=== PATIENT | male | born 1990 | race Caucasian/White ===

== ENCOUNTER 2018-09-24 10:42 | Emergency (ER) | payer SELFPAY ==
--- NOTE | 2018-09-24 11:46 | ED ---
Throat Pain/Nasal Congestion - HPI Summary HPI Summary: Patient presents with bilateral upper tooth pain. Right upper tooth and gum area started hurting about 3-4 days ago. He's been taking naproxen without relief. He has been using salt water mouth rinses which help swelling and irritation. Feels pain is moving up into his taoism region. He is still eating and drinking without difficulty. Denies fever, chills, nausea, vomiting , neck pain or stiffness, high pain, ear pain or nasal congestion. He does not believe he has a discharge coming from this area. Also reports a less severe and intermittent pain in the left upper dental region. Feels a tooth may be loose here and is tender to touch. Denies swelling although reports there may be an odd taste from drainage on this side. Reports history of poor dentition in general and has needed work on his teeth in the past. He has not been receiving her routine dental care since. - History of Current Complaint Chief Complaint: EDDentalPain Time Seen by Provider: 09/24/18 11:14 Hx Obtained From: Patient - Allergies/Home Medications Allergies/Adverse Reactions: Allergies Allergy/AdvReac Type Severity Reaction Status Date / Time No Known Allergies Allergy Verified 09/24/18 10:49 PMH/Surg Hx/FS Hx/Imm Hx Previously Healthy: Yes Endocrine/Hematology History: Denies: Hx Anticoagulant Therapy, Autoimmune Disease EENT History: Reports: Other - recurrent dental issues Infectious Disease History: No Infectious Disease History: Denies: Traveled Outside the [place] in Last 30 Days - Family History Known Family History: Positive: Hypertension, Diabetes - Social History Occupation: Employed Full-time Lives: With Family Alcohol Use: Occasionally Hx Substance Use: No Substance Use Type: Reports: None Hx Tobacco Use: No Smoking Status (MU): Never Smoked Tobacco Review of Systems Constitutional: Negative Negative: Fever, Chills, Fatigue Eyes: Negative Positive: Dental Pain. Negative: Sore Throat, Ear Ache, Nasal Discharge Cardiovascular: Negative Respiratory: Negative Gastrointestinal: Negative Positive: no symptoms reported Musculoskeletal: Negative Skin: Negative Neurological: Negative Psychological: Normal All Other Systems Reviewed And Are Negative: Yes Physical Exam Triage Information Reviewed: Yes Vital Signs On Initial Exam: Initial Vitals Temp Pulse Resp BP Pulse Ox 97.8 F 78 18 141/89 100 09/24/18 10:47 09/24/18 10:47 09/24/18 10:47 09/24/18 10:47 09/24/18 10:47 Vital Signs Reviewed: Yes Appearance: Positive: Well-Appearing, No Pain Distress, Well-Nourished Skin: Positive: Warm, Skin Color Reflects Adequate Perfusion, Dry - no erythema , no edema, no lesions over face/neck Head/Face: Positive: Normal Head/Face Inspection Eyes: Positive: Normal, EOMI - no pain w/ movement, ARLEEN, Conjunctiva Clear. Negative: Conjunctiva Inflammed, Discharge ENT: Positive: Normal ENT inspection, Hearing grossly normal, Pharynx normal, TMs normal, Uvula midline. Negative: Nasal congestion, Nasal drainage, Tonsillar swelling, Tonsillar exudate, Trismus, Muffled voice, Hoarse voice Dental: Positive: Gross Decay/Caries @ - diffuse dental carries and decay throughout mouth w/ mild gingivitis throughout - no melissa areas of edema/abscess /pustules or drainge Neck: Positive: Supple, Nontender, No Lymphadenopathy Respiratory/Lung Sounds: Positive: Breath Sounds Present. Negative: Stridor, Tracheal Deviation Cardiovascular: Positive: Normal Musculoskeletal: Positive: Normal, Strength/ROM Intact Neurological: Positive: Normal, Sensory/Motor Intact, Alert, Oriented to Person Place, Time, CN Intact II-III Psychiatric: Positive: Normal Diagnostics - Vital Signs Vital Signs Temp Pulse Resp BP Pulse Ox 09/24/18 10:47 97.8 F 78 18 141/89 100 - Laboratory Lab Statement: Any lab studies that have been ordered have been reviewed, and results considered in the medical decision making process. EENT Course/Dx - Diagnoses Provider Diagnoses: Gingivitis, Pain due to dental caries Discharge - Sign-Out/Discharge Documenting (check all that apply): Patient Departure - Discharge Plan Condition: Stable Disposition: HOME Prescriptions: Amoxicillin PO (*) [Amoxicillin 500 MG CAP*] 500 mg PO TID #30 cap Chlorhexidine MOUTHWASH 0.12%* [Peridex Mouth Wash 0.12%*] 15 ml MT BID #1 btl Patient Education Materials: Gingivitis (ED), Toothache (ED) Additional Instructions: Take medications as directed See education sheets for additional support Follow-up with dentist later this week - call to schedule an appointment *If you develop severe headache, fever, neck stiffness, difficulty breathing or swallowing, return to the ED - Billing Disposition and Condition Condition: STABLE Disposition: Home
[2018-09-24 11:53] VITALS: BP 142/99
== END 2018-09-24 11:52 | disposition home or self-care (01) ==
LOC: ED 10:42
DX: K05.10 Chronic gingivitis, plaque induced (principal); K02.9 Dental caries, unspecified
CPT/HCPCS: 99282

== ENCOUNTER 2019-01-16 17:48 | Emergency (ER) | payer BC ==
--- NOTE | 2019-01-16 18:34 | ED ---
Throat Pain/Nasal Congestion - HPI Summary HPI Summary: Patient is a 28-year-old male who presents emergency department for redness and drainage to his right eye. Patient states he woke up this morning and noticed drainage and redness to his right eye. Patient notes mild discomfort when rubbing eye and blinking. He does not wear contact lenses. Denies concern for foreign body. Patient states he believes he was around somebody who had pinkeye last week. Patient otherwise denies fever, chills, sore throat, ear pain, cough. No significant past medical history. Symptoms are mild in severity. No current modifying factors. - History of Current Complaint Chief Complaint: EDEyeProblem Time Seen by Provider: 01/16/19 18:00 Hx Obtained From: Patient - Allergies/Home Medications Allergies/Adverse Reactions: Allergies Allergy/AdvReac Type Severity Reaction Status Date / Time No Known Allergies Allergy Verified 01/16/19 17:53 PMH/Surg Hx/FS Hx/Imm Hx Previously Healthy: Yes Endocrine/Hematology History: Denies: Hx Anticoagulant Therapy Infectious Disease History: No Infectious Disease History: Denies: Traveled Outside the [place] in Last 30 Days - Family History Known Family History: Positive: Hypertension, Diabetes - Social History Occupation: Employed Full-time Lives: With Family Alcohol Use: Daily Hx Substance Use: No Substance Use Type: Reports: None Hx Tobacco Use: No Smoking Status (MU): Never Smoked Tobacco Review of Systems Constitutional: Negative Negative: Fever, Chills Positive: Drainage, Erythema ENT: Negative Negative: Sore Throat, Ear Ache, Nasal Discharge Respiratory: Negative Negative: Shortness Of Breath, Cough Skin: Negative Neurological: Negative Negative: Headache All Other Systems Reviewed And Are Negative: Yes Physical Exam Triage Information Reviewed: Yes Vital Signs On Initial Exam: Initial Vitals Temp Pulse Resp BP Pulse Ox 98.9 F 79 18 139/82 99 01/16/19 17:50 01/16/19 17:50 01/16/19 17:50 01/16/19 17:50 01/16/19 17:50 Vital Signs Reviewed: Yes Appearance: Positive: Well-Appearing - Pt. sitting in bed in NAD. Skin: Positive: Warm, Dry Head/Face: Positive: Normal Head/Face Inspection Eyes: Positive: EOMI, ARLEEN, Other: - Left eye unremarkable. moderate injection to right conjunctiva. Small amount of dried yellowish drainage to the inner canthus. EOMI without pain. No periorbital erythema or edema. ENT: Positive: Pharynx normal, TMs normal Neck: Positive: Supple Neurological: Positive: Normal, CN Intact II-III Psychiatric: Positive: Affect/Mood Appropriate Diagnostics - Vital Signs Vital Signs Temp Pulse Resp BP Pulse Ox 01/16/19 17:50 98.9 F 79 18 139/82 99 - Laboratory Lab Statement: Any lab studies that have been ordered have been reviewed, and results considered in the medical decision making process. EENT Course/Dx - Course Course Of Treatment: Exam consistent with likely bacterial conjunctivitis. We' ll treat with Polytrim eyedrops. Advised close follow-up with PCP if symptoms persist. Advised to avoid touching and rubbing eye and practice good hand hygiene. To apply warm compress to eye in morning. Return to the ER if symptoms change or worsen. Patient understands and agrees with plan. - Differential Diagnoses Differential Diagnoses: Allergic Rhinitis, Conjunctivitis - Diagnoses Provider Diagnoses: Conjunctivitis Discharge - Sign-Out/Discharge Documenting (check all that apply): Patient Departure Patient Received Moderate/Deep Sedation with Procedure: No - Discharge Plan Condition: Good Disposition: HOME Prescriptions: Polymyx/Trimethoprim OPTH* [Polytrim OPHTH*] 1 drop RIGHT EYE Q3H 10 Days #1 btl Patient Education Materials: Conjunctivitis (ED) Referrals: Chente Villalobos MD [Primary Care Provider] - Additional Instructions: Follow up with PCP if symptoms persist Use antibiotic drops as directed Apply warm compresses to eye Wash hands frequently and avoid touching/rubbing eye Return to ER if symptoms change or worsen - Billing Disposition and Condition Condition: GOOD Disposition: Home
[2019-01-16 18:36] VITALS: BP 128/98
== END 2019-01-16 18:35 | disposition home or self-care (01) ==
LOC: ED 17:48
DX: H10.9 Unspecified conjunctivitis (principal)
CPT/HCPCS: 99281

== ENCOUNTER 2020-01-13 19:43 | Emergency (ER) | payer BC ==
--- NOTE | 2020-01-13 20:23 | ED ---
Throat Pain/Nasal Congestion - HPI Summary HPI Summary: 29 [facility] upper L dental pain rated 2/10 worse with chewing food x2 days. Hx dental abscess a few years ago. He has taken Tylenol for the pain. He denies fever, chills, difficulty swallowing. He is in the process of establishing dentist. Surgical hx: appendectomy. No known drug allergies. He reports drinking 6 pack almost every day. No recreational drug or tobacco use. - History of Current Complaint Chief Complaint: EDDentalPain Time Seen by Provider: 01/13/20 20:19 Hx Obtained From: Patient Onset/Duration: Lasting Days - 2, Still Present Severity: Mild - 2/10 Associated Signs And Symptoms: Positive: Negative - Allergies/Home Medications Allergies/Adverse Reactions: Allergies Allergy/AdvReac Type Severity Reaction Status Date / Time No Known Allergies Allergy Verified 01/14/20 20:04 Home Medications: Home Medications Acetaminophen [Acetaminophen Extra Strength] 1,000 mg PO Q6HR PRN 01/13/20 [ History Confirmed 01/14/20] Clindamycin Cap(NF) [Clindamycin Cap 300 mg Cap(NF)] 300 mg PO TID 7 Days #21 cap 01/13/20 [Rx Confirmed 01/14/20] PMH/Surg Hx/FS Hx/Imm Hx Endocrine/Hematology History: Denies: Hx Anticoagulant Therapy - Surgical History Surgical History: Yes Surgery Procedure, Year, and Place: appendectomy Infectious Disease History: Yes Infectious Disease History: Denies: Traveled Outside the [place] in Last 30 Days - Family History Known Family History: Positive: Hypertension, Diabetes - Social History Alcohol Use: Daily Alcohol Amount: 6 pack per day Hx Substance Use: No Substance Use Type: Reports: None Hx Tobacco Use: No Smoking Status (MU): Never Smoked Tobacco Review of Systems Negative: Fever, Chills ENT: Negative - difficulty swallowing Positive: Dental Pain All Other Systems Reviewed And Are Negative: Yes Physical Exam - Summary Physical Exam Summary: Constitutional: Well-developed, Well-nourished, Alert. (-) Distressed Skin: Warm, Dry HENT: Normocephalic; Atraumatic; Tooth #9 is necrotic and missing, tenderness in tooth #11, no areas of fluctuance or induction on surface, no mandibular or sublingual swelling, small area of swelling to the L cheek Eyes: Conjunctiva normal Neck: Musculoskeletal ROM normal neck. (-) JVD, (-) Stridor, (-) Tracheal deviation Cardio: Rhythm regular, rate normal, Heart sounds normal; Intact distal pulses; Radial pulses are 2+ and symmetric. (-) Murmur Pulmonary/Chest wall: Effort normal. (-) Respiratory distress, (-) Wheezes, (-) Rales Abd: Soft, (-) tenderness, (-) Distension, (-) Guarding, (-) Rebound Musculoskeletal: (-) Edema Lymph: (-) Cervical adenopathy Neuro: Alert, Oriented x3 Psych: Mood and affect Normal Triage Information Reviewed: Yes Vital Signs On Initial Exam: Initial Vitals Temp Pulse Resp BP Pulse Ox 98.3 F 90 15 137/92 99 01/13/20 19:44 01/13/20 19:44 01/13/20 19:44 01/13/20 19:44 01/13/20 19:44 Vital Signs Reviewed: Yes Procedures - Sedation Patient Received Moderate/Deep Sedation with Procedure: No Diagnostics - Vital Signs Vital Signs Temp Pulse Resp BP Pulse Ox 01/13/20 19:44 98.3 F 90 15 137/92 99 - Laboratory Lab Statement: Any lab studies that have been ordered have been reviewed, and results considered in the medical decision making process. EENT Course/Dx - Course Course Of Treatment: Patient [place] early dental infection. Patient has no drainable abscess or deep space neck infection on exam. Patient was started on clindamycin. - Diagnoses Provider Diagnoses: Periapical abscess, Dental infection Discharge ED - Sign-Out/Discharge Documenting (check all that apply): Patient Departure - Discharge Plan Condition: Stable Disposition: HOME Prescriptions: Clindamycin Cap(NF) [Clindamycin Cap 300 mg Cap(NF)] 300 mg PO TID 7 Days #21 cap Patient Education Materials: Dental Abscess (ED) Referrals: Chente Villalobos MD [Primary Care Provider] - Additional Instructions: Take your antibiotics as prescribed. Stick to a soft diet as much as possible. Take Tylenol/Motrin for the pain. Follow up with a dentist in 1-3 days. Please return to the Emergency Department for any new or worsening symptoms (if you cannot swallow, have swelling underneath your tongue or jaw or swelling into your eye). - Billing Disposition and Condition Condition: STABLE Disposition: Home - Attestation Statements Document Initiated by Markieibe: Yes Documenting Scribe: Berna Ambrocio Provider For Whom Scribe is Documenting (Include Credential): Francesco Lassiter MD Scribe Attestation: I, Berna Ambrocio, scribed for Francesco Lassiter MD on 01/15/20 at 0705. Scribe Documentation Reviewed: Yes Provider Attestation: The documentation as recorded by the markieibBerna rivera accurately reflects the service I personally performed and the decisions made by me, Francesco Lassiter MD Status of Scribe Document: Viewed
[2020-01-13] MEDS ORDERED: Clindamycin CAP* 150 MG PO ONE (20:25)
[2020-01-13 23:28] VITALS: BP 143/95
== END 2020-01-13 21:00 | disposition home or self-care (01) ==
LOC: ED 19:43
DX: K08.89 Other specified disorders of teeth and supporting structures (principal); K04.7 Periapical abscess without sinus
CPT/HCPCS: 99281; A9270-GY

== ENCOUNTER 2020-01-14 19:58 | Emergency (ER) | payer BC ==
--- NOTE | 2020-01-14 20:07 | ED ---
Throat Pain/Nasal Congestion - HPI Summary HPI Summary: 29-year-old male with a significant past medical history of a dental abscess which was diagnosed yesterday and the patient was placed on clindamycin presents to the emergency Department today with chief complaint of increased dental pain. Patient currently endorses 8 out of 10 left upper dental pain which is similar to his complaining yesterday. Patient states he is only taken 2 doses of clindamycin prior to arrival. Patient has taken ibuprofen prior to arrival at 1830 this evening. There is no obvious abscess noted in the mouth or cellulitis or swelling of the face. Patient currently denies difficulty swallowing, breathing, fever, chest pain, abdominal pain, nausea, vomiting, diarrhea, cough, sore throat. - History of Current Complaint Chief Complaint: EDDentalPain Time Seen by Provider: 01/14/20 20:06 Hx Obtained From: Patient Onset/Duration: Gradual Onset Severity: Severe Associated Signs And Symptoms: Negative: Dysphagia, Drooling, Wheezing, Hoarseness, Sinus Discomfort, Nasal Discharge - Allergies/Home Medications Allergies/Adverse Reactions: Allergies Allergy/AdvReac Type Severity Reaction Status Date / Time No Known Allergies Allergy Verified 01/14/20 20:04 Home Medications: Home Medications Acetaminophen [Acetaminophen Extra Strength] 1,000 mg PO Q6HR PRN 01/13/20 [ History Confirmed 01/14/20] Clindamycin Cap(NF) [Clindamycin Cap 300 mg Cap(NF)] 300 mg PO TID 7 Days #21 cap 01/13/20 [Rx Confirmed 01/14/20] PMH/Surg Hx/FS Hx/Imm Hx Endocrine/Hematology History: Denies: Hx Anticoagulant Therapy - Surgical History Surgery Procedure, Year, and Place: appendectomy Infectious Disease History: No Infectious Disease History: Denies: Traveled Outside the [place] in Last 30 Days - Family History Known Family History: Positive: Hypertension, Diabetes - Social History Alcohol Use: Daily Alcohol Amount: 6 pack per day Hx Substance Use: No Substance Use Type: Reports: None Hx Tobacco Use: No Smoking Status (MU): Never Smoked Tobacco Review of Systems Constitutional: Negative Eyes: Negative Positive: Dental Pain. Negative: Epistaxis, Sore Throat, Nasal Discharge Cardiovascular: Negative Respiratory: Negative Gastrointestinal: Negative Genitourinary: Negative Musculoskeletal: Negative Skin: Negative Neurological/Mental Status: Negative Psychological: Normal All Other Systems Reviewed And Are Negative: Yes Physical Exam - Summary Physical Exam Summary: Dentition is in poor repair. There is no evidence of cellulitis of the face or swelling. There is no obvious abscess noted in the mouth. Uvula is midline. No trismus or hoarseness is noted. Triage Information Reviewed: Yes Vital Signs On Initial Exam: Initial Vitals Temp Pulse Resp BP Pulse Ox 97.4 F 88 16 144/104 100 01/14/20 20:00 01/14/20 20:00 01/14/20 20:00 01/14/20 20:00 01/14/20 20:00 Vital Signs Reviewed: Yes Appearance: Positive: Well-Appearing, No Pain Distress, Well-Nourished Skin: Positive: Warm, Skin Color Reflects Adequate Perfusion Eyes: Positive: EOMI, ARLEEN ENT: Positive: Hearing grossly normal Respiratory/Lung Sounds: Positive: Clear to Auscultation, Breath Sounds Present Cardiovascular: Positive: RRR, S1, S2 Abdomen Description: Positive: Nontender, Soft Musculoskeletal: Positive: Strength/ROM Intact Neurological: Positive: Sensory/Motor Intact, Alert, Oriented to Person Place, Time, Normal Gait, Facial Symmetry, Speech Normal Psychiatric: Positive: Normal, Affect/Mood Appropriate AVPU Assessment: Alert Procedures - Sedation Patient Received Moderate/Deep Sedation with Procedure: No Diagnostics - Vital Signs Vital Signs Temp Pulse Resp BP Pulse Ox 01/14/20 20:00 97.4 F 88 16 144/104 100 - Laboratory Lab Statement: Any lab studies that have been ordered have been reviewed, and results considered in the medical decision making process. EENT Course/Dx - Course Course Of Treatment: Patient was evaluated in the emergency department today for dental pain. Vitals noted and stable. Patient was seen at this facility yesterday and diagnosed with dental abscess and given clindamycin for which he has taken 2 doses. Infraorbital dental block was done using 4 mL of bupivacaine 0.5% and 2 ml of lidocaine without epinephrine 1%. Patient tolerated procedure well. Patient had significant pain relief after dental block. Patient discharge outpatient follow-up as there is no evidence of progression of dental abscess. Patient is continue taking his clindamycin. - Differential Diagnoses Differential Diagnoses: Dental Abscess, Dental Caries, Fractured Tooth, Gingivitis - Diagnoses Provider Diagnoses: Dental abscess Discharge ED - Sign-Out/Discharge Documenting (check all that apply): Patient Departure - Discharge Plan Condition: Stable Disposition: HOME Patient Education Materials: Dental Abscess (ED) Additional Instructions: Please continue to take ibuprofen and Tylenol as needed for pain. Please continue to take the clindamycin as directed. Please follow-up with dentistry for further evaluation and management. Please return to this emergency department immediately should you develop any new or worsening symptoms. - Billing Disposition and Condition Condition: STABLE Disposition: Home
[2020-01-14] MEDS ORDERED: Bupivacaine 0.5% PF 10 ML SDV VIAL INJ ONE (20:24)
[2020-01-14] MEDS ORDERED: Bupivacaine 0.5%* 50 ML MDV VIAL INJ ONE (20:24)
[2020-01-14 21:03] VITALS: BP 132/93
== END 2020-01-14 21:02 | disposition home or self-care (01) ==
LOC: ED 19:58
DX: K04.7 Periapical abscess without sinus (principal)
CPT/HCPCS: 99281; J3490

== ENCOUNTER 2020-01-25 09:34 | Emergency (ER) | payer BC ==
[2020-01-25] MEDS ORDERED: Piperacillin/Tazobac ADVAN(*) 3.375 GM in NS 0.9% 100 ML* 100 ML IVPB ONE (10:14)
[2020-01-25] MEDS ORDERED: Ketorolac INJ* 30 MG/ML 1 ML VIAL IV ONE (10:16)
[2020-01-25] MEDS ORDERED: NS 0.9% 1000 ML** 1,000 ML IV ONE (10:16)
[2020-01-25 11:09] LABS: ABS Eosinophils 0.2 10^3/ul (0-0.6); ABS Lymphocytes 1.5 10^3/ul (1.0-4.8); ABS Monocytes 0.8 10^3/ul (0-0.8); ABS Neutrophils 5.5 10^3/ul (1.5-7.7); Hematocrit 45 % (42-52); Hemoglobin 15.3 g/dL (14.0-18.0); Lymphocyte % 18.7 %; Mean Corpuscular HGB Conc 34 g/dL (31-36); Mean Corpuscular Hemoglobin 28 pg (27-31); Mean Corpuscular Volume 83 fL (80-94); Mean Platelet Volume 8.7 fL (7.4-10.4); Nucleated Red Blood Cells % 0.1; Platelet Count 208 10^3/uL (150-450); Red Blood Count 5.41 10^6 /uL (4.18-5.48); Red Cell Distribution Width 14 % (10-15); White Blood Count 7.9 10^3/uL (3.5-10.8)
[2020-01-25 11:28] LABS: Albumin 4.5 g/dL (3.2-5.2); Albumin/Globulin Ratio 1.6 (1-3); C Reactive Protein 4.92 mg/L (<8.01); Calcium 9.2 mg/dL (8.6-10.3); EGFR African American 118.5 (>60); Globulin 2.9 g/dL (2-4); Potassium 4.7 mmol/L (3.5-5.0); Total Bilirubin 0.5 mg/dL (0.2-1.0); Total Protein 7.4 g/dL (6.4-8.9)
[2020-01-25] MEDS ORDERED: Iohexol 300* (CONTRAST) 10 ML SDV IV ONE (11:38)
--- NOTE | 2020-01-25 12:51 | ED ---
Throat Pain/Nasal Congestion - HPI Summary HPI Summary: Patient is an otherwise healthy 29-year-old male presenting to the ED with sided cheek swelling. Patient states this occurred last evening. He denies any pain to the area. He endorses a mild amount of pressure, rated a 2/10. He denies any fevers, sweats, chills. Denies any difficulty with swallowing. He did get diagnosed with a dental abscess 11 days ago and completed a 7 day course of clindamycin. He states this improved his symptoms and he was without pain or swelling over the past several days. However he states since last night , the swelling recurred. He denies other symptoms. Has not required tylenol or ibuprofen for relief. - History of Current Complaint Chief Complaint: EDDentalPain Time Seen by Provider: 01/25/20 10:08 Hx Obtained From: Patient Onset/Duration: Sudden Onset Severity: Mild Associated Signs And Symptoms: Positive: Negative. Negative: Dysphagia, FB Sensation, Drooling, Wheezing, Hoarseness, Sinus Discomfort, Nasal Discharge - Epiglottits Risk Factors Epiglottis Risk Factors: Negative - Allergies/Home Medications Allergies/Adverse Reactions: Allergies Allergy/AdvReac Type Severity Reaction Status Date / Time No Known Allergies Allergy Verified 01/25/20 09:43 Home Medications: Home Medications Acetaminophen [Acetaminophen Extra Strength] 1,000 mg PO Q6HR PRN 01/13/20 [ History Confirmed 01/25/20] Amoxicillin/Clavulanate TAB* [Augmentin TAB 875*] 875 mg PO BID #20 tab [Rx] Ibuprofen TAB* [Motrin TAB* 400 MG] 400 mg PO Q6H PRN 01/25/20 [History Confirmed 01/25/20] PMH/Surg Hx/FS Hx/Imm Hx Previously Healthy: Yes Endocrine/Hematology History: Denies: Hx Anticoagulant Therapy, Hx Diabetes Cardiovascular History: Denies: Hx Hypertension - Surgical History Surgery Procedure, Year, and Place: appendectomy Infectious Disease History: No Infectious Disease History: Denies: Traveled Outside the [place] in Last 30 Days - Family History Known Family History: Positive: Hypertension, Diabetes - Social History Occupation: Employed Full-time Lives: With Family Alcohol Use: Daily Alcohol Amount: 6 pack per day Hx Substance Use: No Substance Use Type: Reports: None Hx Tobacco Use: No Smoking Status (MU): Never Smoked Tobacco Review of Systems Negative: Fever, Chills, Fatigue, Skin Diaphoresis Positive: Dental Pain - left sided swelling without pain at this time Genitourinary: Negative Positive: no symptoms reported, see HPI Negative: Arthralgia, Myalgia Negative: Rash, Bruising Neurological/Mental Status: Negative All Other Systems Reviewed And Are Negative: Yes Physical Exam Triage Information Reviewed: Yes Vital Signs On Initial Exam: Initial Vitals Temp Pulse Resp BP Pulse Ox 97.7 F 101 16 149/92 99 01/25/20 09:40 01/25/20 09:40 01/25/20 09:40 01/25/20 09:40 01/25/20 09:40 Vital Signs Reviewed: Yes Appearance: Positive: Well-Appearing, Well-Nourished Skin: Positive: Warm, Skin Color Reflects Adequate Perfusion Head/Face: Positive: Normal Head/Face Inspection Eyes: Positive: EOMI, ARLEEN, Conjunctiva Clear ENT: Positive: Other - left sided maxillary swelling - mild Neck: Positive: Supple, No Lymphadenopathy Respiratory/Lung Sounds: Positive: Clear to Auscultation, Breath Sounds Present Cardiovascular: Positive: RRR, Pulses are Symmetrical in both Upper and Lower Extremities Musculoskeletal: Positive: Strength/ROM Intact Neurological: Positive: Speech Normal Psychiatric: Positive: Affect/Mood Appropriate AVPU Assessment: Alert Procedures - Sedation Patient Received Moderate/Deep Sedation with Procedure: No Diagnostics - Vital Signs Vital Signs Temp Pulse Resp BP Pulse Ox 01/25/20 10:28 92 143/93 98 01/25/20 10:27 90 97 01/25/20 09:40 97.7 F 101 16 149/92 99 - Laboratory Lab Results: Lab Results 01/25/20 01/25/20 Range/Units 10:40 10:40 WBC 7.9 (3.5-10.8) 10^3/uL RBC 5.41 (4.18-5.48) 10^6 /uL Hgb 15.3 (14.0-18.0) g/dL Hct 45 (42-52) % MCV 83 (80-94) fL MCH 28 (27-31) pg MCHC 34 (31-36) g/dL RDW 14 (10-15) % Plt Count 208 (150-450) 10^3/uL MPV 8.7 (7.4-10.4) fL Neut % (Auto) 69.1 % Lymph % (Auto) 18.7 % Greenlee % (Auto) 9.6 % Eos % (Auto) 2.0 % Baso % (Auto) 0.6 % Absolute Neuts (auto) 5.5 (1.5-7.7) 10^3/ul Absolute Lymphs (auto) 1.5 (1.0-4.8) 10^3/ul Absolute Monos (auto) 0.8 (0-0.8) 10^3/ul Absolute Eos (auto) 0.2 (0-0.6) 10^3/ul Absolute Basos (auto) 0.0 (0-0.2) 10^3/ul Absolute Nucleated RBC 0.0 10^3/ul Nucleated RBC % 0.1 Sodium 139 (135-145) mmol/L Potassium 4.7 (3.5-5.0) mmol/L Chloride 105 (101-111) mmol/L Carbon Dioxide 29 (22-32) mmol/L Anion Gap 5 (2-11) mmol/L BUN 11 (6-24) mg/dL Creatinine 0.92 (0.67-1.17) mg/dL Est GFR ( Amer) 118.5 (>60) Est GFR (Non-Af Amer) 98.0 (>60) BUN/Creatinine Ratio 12.0 (8-20) Glucose 79 (70-100) mg/dL Calcium 9.2 (8.6-10.3) mg/dL Total Bilirubin 0.50 (0.2-1.0) mg/dL AST 23 (13-39) U/L ALT 24 (7-52) U/L Alkaline Phosphatase 48 (34-104) U/L C-Reactive Protein 4.92 (<8.01) mg/L Total Protein 7.4 (6.4-8.9) g/dL Albumin 4.5 (3.2-5.2) g/dL Globulin 2.9 (2-4) g/dL Albumin/Globulin Ratio 1.6 (1-3) Result Diagrams: 01/25/20 10:40 01/25/20 10:40 Lab Statement: Any lab studies that have been ordered have been reviewed, and results considered in the medical decision making process. EENT Course/Dx - Course Course Of Treatment: Physical examination, the patient appears well. Vital signs are stable. There is no obvious abscess, however there is obvious left maxillary area. There is no erythema surrounding an area is not warm to the touch. No trismus noted. Airway patent. No cough or congestion. Lungs CTA. RRR. There is no evidence of an abscess visible to require drainage. CT maxillofacial obtained to assess for loculated abscess. IMPRESSION: INFLAMMATORY CHANGE OF THE SUBCUTANEOUS SOFT TISSUE ALONG THE LEFT ANTERIOR MAXILLA AND MANDIBLE CONSISTENT WITH CELLULITIS, LIKELY ODONTOGENIC WITH A PERIAPICAL ABSCESS OF THE LEFT SECOND MAXILLARY INCISOR. THERE IS NO SOFT TISSUE LOCULATED FLUID COLLECTION TO SUGGEST SOFT TISSUE ABSCESS. Pt afebrile. Denies pain. Given augmentin x 10 days. Dental referrals given. - Differential Diagnoses Differential Diagnoses: Other - abscess - Diagnoses Provider Diagnoses: Cheek swelling, Cellulitis - Critical Care Time Critical Care Statement: Critical care time is provided exclusive of any time spent performing procedures. Discharge ED - Sign-Out/Discharge Documenting (check all that apply): Patient Departure - Discharge Plan Condition: Stable Disposition: HOME Prescriptions: Amoxicillin/Clavulanate TAB* [Augmentin TAB 875*] 875 mg PO BID #20 tab Patient Education Materials: Dental Abscess (ED) Referrals: Chente Villalobos MD [Primary Care Provider] - Additional Instructions: Please follow up with dentist in the area As you have responded well to the antibiotics for this last week, we will continue your anitbiotics, but change the medication Augmentin twice daily x 10 days - Billing Disposition and Condition Condition: STABLE Disposition: Home
[2020-01-25 13:00] VITALS: BP 131/86
== END 2020-01-25 12:58 | disposition home or self-care (01) ==
LOC: ED 09:34
DX: L03.211 Cellulitis of face (principal)
CPT/HCPCS: 36415; 70487; 80053; 85025; 86140; 96361; 96374; 96375; 99282; J1885; J2543; Q9967